=== PATIENT | male | born 2000 | race Caucasian/White ===

== ENCOUNTER 2020-10-21 10:06 | Outpatient (CLI) | payer OTHER ==
[2020-10-21 12:12] LABS: BASOPHILS # (AUTO) 0.1 10^3/uL (0.0-0.1); BASOPHILS % (AUTO) 1.1 %; EOSINOPHILS # (AUTO) 0.1 10^3/uL (0.0-0.7); EOSINOPHILS % (AUTO) 1.9 %; HGB - HEMOGLOBIN 15.9 g/dL (14.0-18.0); LYMPHOCYTES # (AUTO) 1.6 10^3/uL (1.5-3.5); LYMPHOCYTES % (AUTO) 34.3 %; MEAN CORPUSCULAR HEMOGLOBIN 30.5 pg (27.0-31.0); MEAN CORPUSCULAR HGB CONC 34.3 g/dL (32.0-36.0); MEAN CORPUSCULAR VOLUME 89.1 fL (80.0-94.0); MEAN PLATELET VOLUME 10.2 fL (7.4-11.4); MONOCYTES # (AUTO) 0.5 10^3/uL (0.0-1.0); MONOCYTES % (AUTO) 10.3 %; NEUTROPHILS # (AUTO) 2.4 10^3/uL (1.5-6.6); NEUTROPHILS % (AUTO) 52.2 %; PLT - PLATELET COUNT 306 10^3/uL (130-450); RED BLOOD COUNT 5.21 10^6/uL (4.70-6.10); RED CELL DISTRIBUTION WIDTH 11.8 % (12.0-15.0); WHITE BLOOD COUNT 4.7 x10^3/uL (4.8-10.8)
[2020-10-21 14:50] LABS: ALBUMIN 4.5 g/dL (3.2-5.5); ALBUMIN/GLOBULIN RATIO 1.7 (1.0-2.2); BILIRUBIN,TOTAL 0.6 mg/dL (0.2-1.0); CALCIUM 9.4 mg/dL (8.5-10.3); CREATININE 0.8 mg/dL (0.6-1.2); TOTAL PROTEIN 7.1 g/dL (6.7-8.2)
== END 2020-10-21 10:07 | disposition home or self-care (01) ==
LOC: LAB.N 10:06
PROVIDERS: ATTEND Nurse Practitioner
DX: G47.00 Insomnia, unspecified (principal); F90.9 Attention-deficit hyperactivity disorder, unspecified type; F32.9 Major depressive disorder, single episode, unspecified; F41.9 Anxiety disorder, unspecified
CPT/HCPCS: 36415; 80053; 84443; 85025

== ENCOUNTER 2022-04-16 19:08 | Emergency (ER) | payer OTHER ==
[2022-04-16 19:18] VITALS: BP 140/85
--- NOTE | 2022-04-16 19:26 | ED Physician Documentation ---
PD HPI UPPER EXT INJURY - Stated complaint Stated Complaint: L FINGER LAC - Chief complaint Chief Complaint: Laceration - History obtained from History obtained from: Patient (This is a right-handed gentleman who is up-to-date on tetanus who was working on his own car at home and dropped transfer case on the left hand and has a laceration and significant pain to the left ring finger and minor pain to the middle finger.) Review of Systems Constitutional: reports: Reviewed and negative Eyes: reports: Reviewed and negative Nose: reports: Reviewed and negative Throat: reports: Reviewed and negative PD PAST MEDICAL HISTORY - Present Medications Home Medications: Ambulatory Orders Medication Instructions Recorded Confirmed HYDROcod/ACETAM 5/325 [[place] 5/325] 1 - 2 tab PO Q6H PRN #15 tablet 04/16/22 cephALEXin [Keflex] 500 mg PO Q6H #20 cap 04/16/22 - Allergies Allergies/Adverse Reactions: Allergies Allergy/AdvReac Type Severity Reaction Status Date / Time No Known Drug Allergies Allergy Verified 04/16/22 19:18 PD ED PE NORMAL - Vitals Vital signs reviewed: Yes - General General: Alert and oriented X 3, No acute distress - Extremities Extremities: Other (2 cm oblique laceration on the palmar side of the left fourth finger spanning the DIP with potential deformity. Normal neurovascular function of the tip. Will assess tendon function after anesthetic. Mild tenderness to the DIP of the left third finger.) - Neuro Neuro: Alert and oriented X 3, Normal speech Results - Vitals Vitals: Vital Signs - 24 hr 04/16/22 19:14 Temperature 36.2 C L Heart Rate 82 Respiratory 16 Rate Blood Pressure 140/85 H O2 Saturation 100 Oxygen O2 Source Room air - Rads (name of study) L hand XR Radiology: EMP read contemporaneously (Displaced intra-articular fracture of the proximal part of the distal phalanx of the fourth finger) Procedures - Laceration (location) L 4th finger Length in cm: 2 Wound type: Linear Neurovascular status: Sensory intact Tendon involvement: Tendon Injury Anesthesia: Lidocaine 1% Wound preparation: Chlorhexadine, Hibiclens, Irrigated copiously NS Skin layer closure: Nylon, Interrupted, Size #-0 - enter number (4-0), Sutures - enter # (6) Other: Patient tolerated well, No complications, Neurovascular intact, Tetanus booster given - Splint (location) L 4th finger Splint applied by: Tech Type of splint: Metal foam finger splint PD MEDICAL DECISION MAKING - ED course ED course: This young man has a injury to the nondominant ring finger. He is found to have an open fracture and after anesthetic he is unable to flex at the DIP which is worrisome for a tendon injury. The hand was thoroughly cleansed noting that it was covered with grease and his fingernails were cleansed as well. Scrubbed the whole hand with Hibiclens and then the wound was closed with sutures. Placed in a splint and discussed need for follow-up with hand surgery which she verbalizes understanding. Departure - Departure Disposition: 01 Home, Self Care Clinical Impression: Open fracture of phalanx of digit of hand Qualifiers: Encounter type: initial encounter Qualified Code(s): S62.609B - Fracture of unspecified phalanx of unspecified finger, initial encounter for open fracture Finger laceration Qualifiers: Encounter type: initial encounter Finger: ring finger Damage to nail status: without damage Foreign body presence: without foreign body Laterality: left Qualified Code(s): S61.215A - Laceration without foreign body of left ring finger without damage to nail, initial encounter Flexor tendon laceration of finger with open wound Qualifiers: Encounter type: initial encounter Qualified Code(s): S56.129A - Laceration of flexor muscle, fascia and tendon of unspecified finger at forearm level, initial encounter Condition: Good Record reviewed to determine appropriate education?: Yes Instructions: ED Fx Finger Open Prescriptions: cephALEXin [Keflex] 500 mg PO Q6H #20 cap HYDROcod/ACETAM 5/325 [[place] 5/325] 1 - 2 tab PO Q6H PRN #15 tablet PRN Reason: Pain Comments: As discussed, you have a laceration of the left fourth finger with a comminuted fracture that involves the joint of the distal phalanx of that digit. It also seems like you probably have a tendon injury related to this. Keep the splint on and dry, do not remove it. You need to follow-up with a hand surgeon, the closest is in Dr. Berny Anton's phone number is [phone]. Call them tomorrow for an appointment. Let them know that you have a finger fracture with a tendon injury. I sent your prescription electronically to [facility] in [place]. I am prescribing a short course of narcotic pain medication for you. These are potentially dangerous and addictive medications that should be used carefully. These medications may constipate you. Take an jsco-kai-obgsvhd stool softener (docusate) twice daily with plenty of water while taking these medications. If you go 24 hours without a bowel movement, take kial-mwo-ldxiodb miralax, per package instructions. Do not drink or drive while taking these medications. If you received narcotic or sedating medications while in the emergency department, do not drive for 24 hours. Store this medication in a safe, secure place and out of reach of children. It is a violation of federal law to give or sell this medication to another person or to use in a manner other than prescribed. The ED will not refill narcotic prescriptions, including prescriptions lost or stolen. To dispose of unwanted medications: 1. [facility] [address] in [place] has a medication drop box. They accept prescription medications (in pill form) Wednesday through Wednesday 9:00 a.m. to 5:00 p.m. 2. [facility], [place] [employer] accepts prescription medications (in pill form only) for disposal year round. Call for more information. 3. Contact the [facility] for the next [facility] sponsored prescription drug collection event. , [phone], or [phone]; Note that many narcotic pain relievers also contain Tylenol/acetaminophen. Please ensure that your total dose of acetaminophen from all sources does not exceed 3 g (3000 mg) per day. Discharge Date/Time: 04/16/22 20:10
--- NOTE | 2022-04-16 19:51 | XRAY Report ---
PROCEDURE: Hand 3 View LT INDICATIONS: hand inj TECHNIQUE: 3 views of the hand(s) acquired. COMPARISON: None FINDINGS: Bones: Acute fracture through base of fourth distal phalanx is seen with dorsal and medial displaceme nt at fracture site. Fracture line is seen extending to fourth DIP joint.. No suspicious bony lesion s. Soft tissues: No suspicious soft tissue calcifications. IMPRESSION: Acute displaced intra-articular fracture of fourth distal phalangeal base as above. Reviewed by: Preet Rapp MD on 04/16/2022 7:50 PM PDT Approved by: Preet Rapp MD on 04/16/2022 7:50 PM PDT Station ID: [id number]
[2022-04-16] MEDS ORDERED: CEPHALEXIN 250 MG Prepack 8 CAP BOTTLE PO STA (19:54)
[2022-04-16] MEDS ORDERED: HYDROcod/ACET 5/325 Prepack 4 PO STA (19:54)
== END 2022-04-16 20:10 | disposition home or self-care (01) ==
LOC: ED 19:08
DX: S62.635B Displaced fracture of distal phalanx of left ring finger, initial encounter for open fracture (principal); W20.8XXA Other cause of strike by thrown, projected or falling object, initial encounter; Y93.89 Activity, other specified
CPT/HCPCS: 12001; 99283

== ENCOUNTER 2023-04-17 14:53 | Emergency (ER) | payer OTHER ==
[2023-04-17 15:15] VITALS: BP 130/73
--- NOTE | 2023-04-17 15:49 | ED Physician Documentation ---
PD HPI UPPER EXT INJURY - Stated complaint Stated Complaint: RT HAND LAC - Chief complaint Chief Complaint: Laceration - History obtained from History obtained from: Patient, Family - History of Present Illness Location: Right, Hand Type of injury: Laceration Pain level max: 3 Pain level now: 2 Improved by: Rest Worsened by: Moving, Palpating - Additonal information Additional information: 22-year-old male presents to the emergency department with a laceration to the dorsum of the right hand. This was while working on a jeep today. Worse with movement, better with rest. Not on blood thinners. Patient is right-handed. No fevers. No chills. Tetanus up-to-date. PD PAST MEDICAL HISTORY - Past Medical History Past Medical History: No - Past Surgical History Past Surgical History: Yes Ortho: Shoulder arthroplasty - Present Medications Home Medications: Ambulatory Orders Medication Instructions Recorded Confirmed No Known Home Medications 04/17/23 04/17/23 - Allergies Allergies/Adverse Reactions: Allergies Allergy/AdvReac Type Severity Reaction Status Date / Time No Known Drug Allergies Allergy Verified 04/17/23 15:08 - Social History Does the pt smoke?: No Smoking Status: Never smoker - Immunizations Immunizations are current?: Yes Immunizations: TDAP current <10years PD ED PE NORMAL - Vitals Vital signs reviewed: Yes - General General: Alert and oriented X 3, No acute distress - Derm Derm: Warm and dry - Extremities Extremities: Other (2 cm laceration of the dorsum of the right hand. Neurovascular intact. This is over the MCP joint of the index finger. Subcutaneous. No deformity or bony tenderness Using the hand freely) - Neuro Neuro: Alert and oriented X 3 Results - Vitals Vitals: Vital Signs - 24 hr 04/17/23 15:05 Temperature 37.3 C Heart Rate 71 Respiratory 14 Rate Blood Pressure 130/73 O2 Saturation 99 Oxygen O2 Source Room air Procedures - Laceration (location) Right hand Length in cm: 2 Wound type: Linear, Into subcut fat, Clean Neurovascular status: Sensory intact, Motor intact, Vascular intact Tendon involvement: Tendon intact Anesthesia: Lidocaine 1% with epi Wound preparation: Irrigated copiously NS, Wound explored, To the base Skin layer closure: Nylon, Interrupted, Size #-0 - enter number (4) Other: Patient tolerated well, No complications, Neurovascular intact, Dressing applied, Tetanus UTD PD Medical Decision Making - ED course Complexity details: considered differential, d/w patient ED course: Laceration of the dorsum of the right hand. Repaired. Tolerated well. No complications. No indication for emergent imaging. No evidence of tendon injury or bony injury. Warnings of infection and instructions on wound care given at bedside. Also counseled on how to minimize scarring. Patient counseled regarding signs and symptoms for which I believe and urgent re-evaluation would be necessary. Patient with good understanding of and agreement to plan and is comfortable going home at this time This document was made in part using voice recognition software. While efforts are made to proofread this document, sound alike and grammatical errors may occur. Departure - Departure Disposition: 01 Home, Self Care Clinical Impression: Hand laceration Qualifiers: Encounter type: initial encounter Foreign body presence: without foreign body Laterality: right Qualified Code(s): S61.411A - Laceration without foreign body of right hand, initial encounter Condition: Good Instructions: ED Laceration Hand Follow-Up: your,doctor in 2 weeks for suture removal [Other] Comments: Keep the wound clean. Return if you notice redness, swelling or drainage from the wound as these can be signs of infection. Your sutures should be removed in about 10 to 14 days, this can be done with your doctor. Forms: PCP List Discharge Date/Time: 04/17/23 16:01
== END 2023-04-17 16:01 | disposition home or self-care (01) ==
LOC: ED 14:53
DX: S61.411A Laceration without foreign body of right hand, initial encounter (principal); X58.XXXA Exposure to other specified factors, initial encounter
CPT/HCPCS: 12001; 99281